=== PATIENT | female | born 1940 | race Caucasian/White ===

== ENCOUNTER 2017-11-24 13:13 | Outpatient (CLI) | payer MEDICARE, OTHER ==
--- NOTE | 2017-11-26 14:56 | Mammography Report ---
Procedure Date: 11/24/2017 Accession Number: [id number] / [id number] Procedure: MONIQUE - Screening Mammo Dig Bilat CPT Code: FULL RESULT: EXAM: Screening Mammo Dig Bilat DATE: 11/24/2017 1:36 PM CLINICAL HISTORY: 77-year-old female with history of lumpectomy in 1950 with benign biopsy results on the right breast and family history of breast cancer in the mother at age 78 as well as personal history of early menses and 25 years of hormonal therapy. TECHNIQUE: Bilateral CC and MLO views were obtained. COMPARISON: 03/08/2013, 03/11/2011, 03/19/2010, 02/12/2009. FINDINGS: The breasts demonstrate scattered fibroglandular densities bilaterally. Typically benign bilateral vascular calcifications as well as round typically benign bilateral calcifications. No suspicious masses, clustered microcalcifications, or regions of architectural distortion are identified. IMPRESSION: Benign findings RECOMMENDATION: Routine annual screening unless otherwise clinically indicated. BIRADS CATEGORY 2: Benign findings STANDARD QUALIFYING STATEMENTS: 1. This examination was reviewed with the aid of Computer-Aided Detection (CAD). 2. A negative or benign imaging report should not delay biopsy if clinically suspicious findings are present. Consider surgical consultation if warrented. More than 5% of cancers are not identified by imaging. 3. Dense breasts may obscure an underlying neoplasm.
== END 2017-11-24 13:14 | disposition home or self-care (01) ==
LOC: DI 13:13
PROVIDERS: ATTEND Internal Medicine
DX: Z12.31 Encounter for screening mammogram for malignant neoplasm of breast (principal); Z80.3 Family history of malignant neoplasm of breast
CPT/HCPCS: 77067

== ENCOUNTER 2021-01-20 14:26 | Outpatient (CLI) | payer MEDICARE, OTHER ==
--- NOTE | 2021-01-21 13:00 | Mammography Report ---
BILATERAL DIGITAL SCREENING MAMMOGRAM 3D/2D: 01/20/2021 CLINICAL: Routine screening. Comparison is made to exams dated: 11/24/2017 mammogram, 03/08/2013 ultrasound, 03/08/2013 mammogram, and 03/11/2011 mammogram - [facility]. The tissue of both breasts is predominantly fatty. There are benign calcifications in the left breast. There also are benign vascular calcifications in the right breast. No significant masses, calcifications, or other findings are seen in either breast. There has been no significant interval change. IMPRESSION: BENIGN There is no mammographic evidence of malignancy. A 1 year screening mammogram is recommended. This exam was interpreted at Station ID: [id number]. NOTE: For mammograms, a report in lay terms will be sent to the patient. Approximately 15% of breast malignancies will not be visualized mammographically. In the management of a palpable breast mass, a negative mammogram must not discourage biopsy of a clinically suspicious lesion. Electronically Signed By: Jaleel Minor acr/penrad:01/20/2021 18:08:17 ACR BI-RADS Category 2: Benign Finding(s) 3342F PARENCHYMAL PATTERN: (F) - The breast(s) demonstrate(s) diffuse fatty replacement. BI-RADS CATEGORY: (2) - 2 RECOMMENDATION: (ANNUAL) - Recommend routine annual screening mammography. [id number] 1 year screening LATERALITY: (B)
== END 2021-01-20 14:27 | disposition home or self-care (01) ==
LOC: DI 14:26
PROVIDERS: ATTEND Family Medicine
DX: Z12.31 Encounter for screening mammogram for malignant neoplasm of breast (principal)

== ENCOUNTER 2021-04-09 15:45 | Outpatient (CLI) | payer MEDICARE, OTHER ==
[2021-04-09 16:11] LABS: CALCIUM 9.2 mg/dL (8.5-10.3); CREATININE 0.9 mg/dL (0.4-1.0)
== END 2021-04-09 15:46 | disposition home or self-care (01) ==
LOC: LAB 15:45
PROVIDERS: ATTEND Internal Medicine Cardiovascular Disease
DX: I10 Essential (primary) hypertension (principal)
CPT/HCPCS: 36415; 80048

== ENCOUNTER 2021-06-09 15:53 | Outpatient (CLI) | payer MEDICARE, OTHER ==
--- NOTE | 2021-06-09 16:54 | XRAY Report ---
PROCEDURE: Knee 3 View RT INDICATIONS: KNEE PAIN TECHNIQUE: 3 views of the right knee(s) were acquired. COMPARISON: None. FINDINGS: Bones: No fractures or dislocations. No suspicious bony lesions. Soft tissues: Moderate knee joint effusion. No suspicious soft tissue calcifications. IMPRESSION: Knee joint effusion. No acute fracture. No osseous lesion. If symptoms and/or clinical s uspicion for pathology continue, further assessment with repeat plain films, or advanced imaging (e.g ., CT, MRI, or bone scan) is recommended for further assessment. Reviewed by: Bishop Moseley MD on 06/09/2021 4:52 PM PST Approved by: Bishop Moseley MD on 06/09/2021 4:52 PM PST Station ID: [id number]
== END 2021-06-09 15:54 | disposition home or self-care (01) ==
LOC: DI 15:53
PROVIDERS: ATTEND Internal Medicine
DX: M25.561 Pain in right knee (principal); M25.461 Effusion, right knee

== ENCOUNTER 2021-12-07 14:22 | Outpatient (CLI) | payer MEDICARE, OTHER ==
--- NOTE | 2021-12-07 15:13 | XRAY Report ---
PROCEDURE: Chest 2 View X-Ray INDICATIONS: COUGH TECHNIQUE: 2 view(s) of the chest. COMPARISON: None. FINDINGS: Surgical changes and devices: None. Lungs and pleura: No pleural effusions or pneumothorax. Lungs are clear. Mediastinum: Mediastinal contours are normal. Heart size is normal. Bones and chest wall: No suspicious bony abnormalities. Soft tissues appear unremarkable. IMPRESSION: No evidence acute pulmonary process. Reviewed by: Yogi Fuller MD on 12/07/2021 2:11 PM LUCINA Approved by: Yogi Fuller MD on 12/07/2021 2:11 PM LUCINA Station ID: [id number]
== END 2021-12-07 14:23 | disposition home or self-care (01) ==
LOC: DI 14:22
PROVIDERS: ATTEND Student in an Organized Health Care Education/Training Program
DX: R05.1 Acute cough (principal)

== ENCOUNTER 2022-05-29 13:18 | Outpatient (CLI) | payer MEDICARE, OTHER ==
--- NOTE | 2022-05-29 15:56 | XRAY Report ---
PROCEDURE: Chest 2 View X-Ray INDICATIONS: COUGH TECHNIQUE: 2 views of the chest were acquired. COMPARISON: 12/07/2021 FINDINGS: Surgical changes and devices: None. Lungs and pleura: No pleural effusions or pneumothorax. Lungs are clear. Mediastinum: Mediastinal contours are normal. Heart size is normal. Bones and chest wall: No suspicious bony abnormalities. Soft tissues appear unremarkable. IMPRESSION: Chest without acute cardiopulmonary abnormalities or focal airspace disease. Reviewed by: Gerry Bender MD on 05/29/2022 3:55 PM PST Approved by: Gerry Bender MD on 05/29/2022 3:55 PM PST Station ID: [id number]
== END 2022-05-29 13:19 | disposition home or self-care (01) ==
LOC: DI 13:18
PROVIDERS: ATTEND Student in an Organized Health Care Education/Training Program
DX: R05.9 Cough, unspecified (principal)

== ENCOUNTER 2023-03-12 14:43 | Outpatient (CLI) | payer MEDICARE, OTHER ==
--- NOTE | 2023-03-15 10:14 | Mammography Report ---
BILATERAL DIGITAL SCREENING MAMMOGRAM 3D/2D: 03/12/2023 CLINICAL: Routine screening. Comparison is made to exams dated: 01/20/2021 mammogram and 11/24/2017 mammogram - [facility]. There are scattered areas of fibroglandular density in both breasts (category b / 25%-50% glandular t issue). There are benign calcifications in the left breast. There also are benign vascular calcifications in the right breast. No significant masses, calcifications, or other findings are seen in either breast. There has been no significant interval change. IMPRESSION: BENIGN There is no mammographic evidence of malignancy. A 1 year screening mammogram is recommended. Based on the Tyrer Cuzick model (a risk assessment model) the patients lifetime risk is 0.2% and her 10 year risk is 0.0%. According to the ACR, ACS, and NCCN guidelines, an annual breast MRI exam bhavesh g with mammogram is recommended if the patients lifetime risk is 20% or greater. This exam was interpreted at Station ID: [id number]. NOTE: For mammograms, a report in lay terms will be sent to the patient. Approximately 15% of breast malignancies will not be visualized mammographically. In the management of a palpable breast mass, a negative mammogram must not discourage biopsy of a clinically suspicious lesion. Electronically Signed By: Gerry sanchez/santiago:03/12/2023 16:54:49 letter sent: No_Letter ACR BI-RADS Category 2: Benign Finding(s) 3342F PARENCHYMAL PATTERN: (A) - The breast(s) demonstrate(s) scattered fibroglandular densities. BI-RADS CATEGORY: (2) - 2 Mammogram [id number] 1 year screening LATERALITY: (B)
== END 2023-03-12 14:44 | disposition home or self-care (01) ==
LOC: DI 14:43
PROVIDERS: ATTEND Nurse Practitioner Family
DX: Z12.31 Encounter for screening mammogram for malignant neoplasm of breast (principal); R92.323 Mammographic fibroglandular density, bilateral breasts